=== PATIENT | female | born 1935 | race Caucasian/White ===

== ENCOUNTER → 2022-06-24 | Outpatient (CLI) | payer MEDICARE | END | disposition home or self-care (01) | LOC: RAH 07:49 | PROVIDERS: ATTEND Nurse Practitioner | DX: M25.411 Effusion, right shoulder (principal); M85.611 Other cyst of bone, right shoulder; M75.41 Impingement syndrome of right shoulder; M19.011 Primary osteoarthritis, right shoulder | CPT/HCPCS: 73221 ==

== ENCOUNTER 2022-07-16 08:00 | Observation (INO) | payer MEDICARE ==
[~2022-07-16] VITALS: Ht 160 cm; Wt 72.2 kg
[2022-07-16 10:35] VITALS: BP 176/68
[2022-07-16 10:49] LABS: BASOPHILS % (AUTO) 0.9 % (0.0-5.0); EOSINOPHILS % (AUTO) 1.2 % (0.0-8.0); MEAN CORPUSCULAR HEMOGLOBIN 27.2 pg (27.0-33.0); MEAN CORPUSCULAR HGB CONC 31.2 g/dL (32.0-36.0); MEAN CORPUSCULAR VOLUME 87.3 fL (79-99); MONOCYTES % (AUTO) 7.2 % (3.0-13.0); NEUTROPHILS % (AUTO) 75.4 % (40.0-77.0); PLATELET COUNT (AUTO) 266 K/uL (130-400); RED BLOOD CELL COUNT(AUTO) 4.81 MIL/uL (4.00-5.50); RED CELL DISTRIBUTION WIDTH 14.4 % (11.0-15.5); WHITE BLOOD COUNT (AUTO) 11.1 K/uL (4.8-10.8)
[2022-07-16 11:00] LABS: ALBUMIN 3.4 g/dL (3.5-5.0); CARBON DIOXIDE 29 mmol/L (21-32); CHLORIDE 103 mmol/L (101-111); CREATININE 0.9 mg/dL (0.5-1.5); GLOMERULAR FILTR. RATE CALC 63 mL/min (>60); GLUCOSE,RANDOM 86 mg/dL (70-105); POTASSIUM 3.3 mmol/L (3.5-5.1); SODIUM SERUM 139 mmol/L (136-145); UREA NITROGEN, BLOOD 17 mg/dL (7-18)
[2022-07-16 11:03] LABS: INR 0.93 (0.85-1.15); PROTHROMBIN TIME 10.1 SEC (9.6-11.6)
[2022-07-16 11:04] LABS: PARTIAL THROMBOPLASTIN TIME 28.5 SEC (26.3-35.5)
[2022-07-16 11:08] LABS: CRP QUANTITATIVE < 2.00 mg/L (0.00-9.0)
[2022-07-16 11:13] LABS: APPEARANCE,URINE CLEAR (CLEAR); BILIRUBIN,URINE NEGATIVE (NEGATIVE); COLOR,URINE LIGHT-YELLOW (YELLOW); GLUCOSE, URINE (UA) NEGATIVE (NEGATIVE); KETONES,URINE NEGATIVE (NEGATIVE); LEUKOCYTE ESTERASE ,URINE 250 Leu/uL (NEGATIVE); NITRATE,URINE NEGATIVE (NEGATIVE); OCCULT BLOOD,URINE NEGATIVE (NEGATIVE); PH,URINE 5.5 (5.0-8.0); PROTEIN,URINE NEGATIVE (NEGATIVE); UROBILINOGEN,URINE 0.2 mg/dL (0.2-1.0)
[2022-07-16 11:34] LABS: MUCUS,URINE RARE LPF (None Seen); SQUAMOUS EPITHELIAL CELL,UR MOD /HPF (0-2); TRANSITIONAL EPI CELLS,URINE RARE /HPF (None Seen)
[2022-07-16] MEDS ORDERED: TRAZ150T79 PO (11:44)
[2022-07-16] MEDS ORDERED: BUDE3CAP10 PO (11:44)
[2022-07-16] MEDS ORDERED: AMLO-258 PO (11:44)
[2022-07-16] MEDS ORDERED: RIVA3CAP17 PO (11:44)
[2022-07-16] MEDS ORDERED: DENO60DI SQ (11:44)
[2022-07-16] MEDS ORDERED: LEVO100C4 PO (11:44)
[2022-07-16] MEDS ORDERED: IRON18TA PO (11:44)
[2022-07-16] MEDS ORDERED: CA/D1TAB3 PO (11:44)
[2022-07-16] MEDS ORDERED: ASCO500C18 PO (11:44)
[2022-07-16] MEDS ORDERED: PRAV20TA4 PO (11:44)
[2022-07-16] MEDS ORDERED: UBID100C10 PO (11:44)
[2022-07-16] MEDS ORDERED: CHOL200074 PO (11:44)
[2022-07-16] MEDS ORDERED: CETI10CA5 PO (11:44)
[2022-07-16] MEDS ORDERED: BETA1TAB18 PO (11:44)
[2022-07-16] MEDS ORDERED: TYLENOL ARTHRITIS PO (11:44)
[2022-07-16] MEDS ORDERED: [UNRECOGNIZED DRUG - OTHER] PO (11:44)
[2022-07-16] MEDS ORDERED: MELA5CAP PO (11:44)
[2022-07-16] MEDS ORDERED: MONT-39 PO (11:44)
[2022-07-19] VITALS (30 sets, daily range): BP systolic 81–139; BP diastolic 32–90
[2022-07-19] MEDS ORDERED: ROPIVACAINE 0.5% 5MG/ML 30ML IJ ONE (04:28)
[2022-07-19] MEDS ORDERED: ALBUMIN (HUMAN) 5% 250 ML IV ONE ×2 (04:56→11:19)
[2022-07-19] MEDS ORDERED: PROPOFOL 10 MG/ML 20ML VIAL IV ONE (06:25)
[2022-07-19] MEDS ORDERED: DEXAMETHASONE SOD PHOSPHATE 10MG/ML 1ML VIAL ONE (06:25)
[2022-07-19] MEDS ORDERED: GLYCOPYRROLATE 1 MG/5 ML SYRINGE ONE (06:25)
[2022-07-19] MEDS ORDERED: LIDOCAINE PF 100MG/5ML (2%) SYRINGE 5ML ONE (06:25)
[2022-07-19] MEDS ORDERED: SUCCINYLCHOLINE CHLORIDE 20 MG/ML 10 ML VIAL ONE (06:25)
[2022-07-19] MEDS ORDERED: ROCURONIUM 10MG/1ML SYR 10 MG/ML ML ONE ×2 (06:26→08:52)
[2022-07-19] MEDS ORDERED: FENTANYL CITRATE PF 50 MCG/1 ML 2ML VIAL ONE (06:26)
[2022-07-19] MEDS ORDERED: ONDANSETRON 4MG INJ ONE (06:26)
[2022-07-19] MEDS ORDERED: MIDAZOLAM HCL 1 MG/ML 2ML VIAL ONE (06:26)
[2022-07-19] MEDS ORDERED: NEOSTIGMINE 5MG/5ML SYR IV ONE (06:26)
[2022-07-19] MEDS ORDERED: PHENYLEPHRINE HCL 10 MG/ML 1ML VIAL IV ONE ×2 (06:32→09:10)
[2022-07-19] MEDS ORDERED: EPHEDRINE SULFATE 50 MG/ML AMPULE ONE ×2 (06:36→11:49)
[2022-07-19] MEDS ORDERED: CEFAZOLIN SODIUM 1 GM VIAL ONE (06:41)
[2022-07-19] MEDS ORDERED: LACTATED RINGERS 1000ML 1,000 ML IV ONE (06:41)
[2022-07-19] MEDS ORDERED: ALBUTEROL INHALER 90MCG/INH IH ONE (07:18)
[2022-07-19] MEDS ORDERED: NOREPINEPHRINE BITARTRATE 1 MG/1 ML ML IV ONE (09:39)
[2022-07-19] MEDS ORDERED: POTASSIUM CHLORIDE 10% ELIXIR 20 MEQ/15 ML UDCUP PO PRN (10:00)
[2022-07-19] MEDS ORDERED: POTASSIUM CHLORIDE 20MEQ/100ML 100 ML IV PRN (10:00)
[2022-07-19] MEDS ORDERED: ONDANSETRON 4MG INJ IVP PRN (10:00)
[2022-07-19] MEDS ORDERED: KETOROLAC 15MG/ML VIAL (15MG/ML) IV PRN (10:00)
[2022-07-19] MEDS ORDERED: KCL 20 MEQ ERTAB PO PRN (10:00)
[2022-07-19] MEDS ORDERED: DiphenhydrAMINE HCL 50 MG/ML VIAL IVP PRN (10:00)
[2022-07-19] MEDS ORDERED: HYDROCODONE/ACETAMINOPHEN 5/325 MG TAB PO PRN (10:00)
[2022-07-19] MEDS ORDERED: LIDOCAINE HCL-MPF 1% 2ML VIAL IV PRN (10:00)
[2022-07-19] MEDS ORDERED: CALCIUM CARB 500MG PO PRN (10:00)
[2022-07-19] MEDS: 0.9%NACL 1000ML 1,000 ML IV SCH ×2 (10:00→20:00)
[2022-07-19] MEDS ORDERED: FE FUMARATE/FA/MV, MIN COMB#15 1 TAB PO PRN (10:00)
[2022-07-19] MEDS: KETOROLAC 15MG/ML VIAL (15MG/ML) IV SCH ×2 (11:03→19:11)
[2022-07-19] MEDS ORDERED: LACTATED RINGERS 1000ML 1,000 ML IV SCH ×2 (13:30)
[2022-07-19] MEDS ORDERED: IRON 18 MG PO SCH (13:30)
[2022-07-19 14:31] LABS: BASOPHILS % (AUTO) 0.2 % (0.0-5.0); LYMPHOCYTES % (AUTO) 3.1 % (21.0-51.0); MEAN CORPUSCULAR HEMOGLOBIN 27.5 pg (27.0-33.0); MEAN CORPUSCULAR HGB CONC 31.6 g/dL (32.0-36.0); MEAN CORPUSCULAR VOLUME 87.2 fL (79-99); MONOCYTES % (AUTO) 1.7 % (3.0-13.0); NEUTROPHILS % (AUTO) 94.6 % (40.0-77.0); PLATELET COUNT (AUTO) 187 K/uL (130-400); RED BLOOD CELL COUNT(AUTO) 3.67 MIL/uL (4.00-5.50); RED CELL DISTRIBUTION WIDTH 14.4 % (11.0-15.5); WHITE BLOOD COUNT (AUTO) 13.8 K/uL (4.8-10.8)
[2022-07-19 14:51] LABS: CREATININE 0.7 mg/dL (0.5-1.5); POTASSIUM 3.2 mmol/L (3.5-5.1)
[2022-07-19 14:57] LABS: ALBUMIN 3.2 g/dL (3.5-5.0); MAGNESIUM 1.7 mg/dL (1.80-2.40); TOTAL PROTEIN, SERUM 5.8 g/dL (6.0-8.3)
[2022-07-19] MEDS: CEFAZOLIN SODIUM 2 GM VIAL IVPB SCH ×2 (17:36→22:46)
[2022-07-19] MEDS: DOCUSATE SODIUM 100 MG CAP PO SCH (20:42)
[2022-07-19] MEDS: FAMOTIDINE 20MG TAB PO SCH (20:42)
[2022-07-19] MEDS: RIVASTIGMINE TARTRATE 3 MG PO SCH (20:48)
[2022-07-19] MEDS ORDERED: MONTELUKAST SODIUM 10 MG TAB PO SCH (21:00)
[2022-07-19] MEDS ORDERED: TRAZODONE HCL 50 MG TAB PO SCH (21:00)
[2022-07-19] MEDS ORDERED: CETIRIZINE HCL 5 MG TABLET PO SCH (21:00)
[2022-07-19] MEDS ORDERED: ATORVASTATIN 10 MG TABLET PO SCH (21:00)
[2022-07-19] MEDS ORDERED: **HM**(Melatonin 5 MG PO SCH (21:00)
[2022-07-20] VITALS: BP 118/63
[2022-07-20] MEDS: KETOROLAC 15MG/ML VIAL (15MG/ML) IV SCH (03:04)
[2022-07-20 04:00] VITALS: BP 121/55
[2022-07-20 05:35] LABS: HEMATOCRIT 30.3 % (36-48); MEAN CORPUSCULAR HEMOGLOBIN 27.5 pg (27.0-33.0); MEAN CORPUSCULAR VOLUME 85.8 fL (79-99); RED BLOOD CELL COUNT(AUTO) 3.53 MIL/uL (4.00-5.50); RED CELL DISTRIBUTION WIDTH 14.4 % (11.0-15.5); WHITE BLOOD COUNT (AUTO) 13.1 K/uL (4.8-10.8)
[2022-07-20] MEDS: 0.9%NACL 1000ML 1,000 ML IV SCH (06:00)
[2022-07-20 06:03] LABS: CREATININE 0.7 mg/dL (0.5-1.5); POTASSIUM 3.6 mmol/L (3.5-5.1)
[2022-07-20] MEDS ORDERED: LEVOTHYROXINE 100 MCG TABLET PO SCH (06:30)
[2022-07-20 08:00] VITALS: BP 143/77
[2022-07-20] MEDS: DOCUSATE SODIUM 100 MG CAP PO SCH (08:32)
[2022-07-20] MEDS: FAMOTIDINE 20MG TAB PO SCH (08:33)
[2022-07-20] MEDS: RIVASTIGMINE TARTRATE 3 MG PO SCH (08:35)
[2022-07-20] MEDS ORDERED: AMLODIPINE 5 MG TAB PO SCH (09:00)
[2022-07-20] MEDS ORDERED: POLYETHYLENE GLYCOL 3350 17 GM POWD.PACK PO SCH (09:00)
[2022-07-20] MEDS ORDERED: BUDESONIDE 3 MG CAP.ER.24H PO SCH (09:00)
[2022-07-20 12:27] VITALS: BP 137/71
[2022-07-20] MEDS ORDERED: TRAMADOL HCL 50 MG TABLET PO PRN (12:30)
[2022-07-20] MEDS ORDERED: HYDROCODONE/ACETAMINOPHEN 5/325 MG TAB PO PRN ×2 (12:30)
[2022-07-20] MEDS ORDERED: TRAM50TA4 PO (17:45)
[2022-07-22] MEDS ORDERED: BISACODYL 10 MG SUPP.RECT RC PRN (10:00)
== END 2022-07-20 18:30 | disposition home or self-care (01) ==
LOC: EDSTATUS 08:00 → DAHIP 07-19 05:52 → 3AH 07-19 15:33
PROVIDERS: ADMIT Student in an Organized Health Care Education/Training Program; ATTEND Student in an Organized Health Care Education/Training Program
DX: M19.012 Primary osteoarthritis, left shoulder (principal); Z20.822 Contact with and (suspected) exposure to COVID-19; D62 Acute posthemorrhagic anemia; I10 Essential (primary) hypertension; E78.5 Hyperlipidemia, unspecified; E03.9 Hypothyroidism, unspecified; E83.51 Hypocalcemia; M75.102 Unspecified rotator cuff tear or rupture of left shoulder, not specified as traumatic; I95.9 Hypotension, unspecified; I49.3 Ventricular premature depolarization; Z90.710 Acquired absence of both cervix and uterus; Z79.899 Other long term (current) drug therapy; Z98.890 Other specified postprocedural states
CPT/HCPCS: 23472; 96365; 96366; 96375; 96376; G0378 ×27; G0379; C1776; 36415; 73030; 80048; 80053; 81001; 82040; 82948; 83735; 84134; 85025; 85027; 85610; 85730; 86140; 87088; 87426; 87641; 93005; 97039; A4565; J0330; J0690; J1100; J1885; J2001; J2250; J2370; J2405; J2704; J2710; J2795; J3010; J3490; J7120; P9045

== ENCOUNTER 2022-07-22 14:50 | Inpatient (IN) | payer MEDICARE ==
[~2022-07-22] VITALS: Ht 154.9 cm; Wt 83.0 kg
[~2022-07-22 14:50] MED LIST: AMLO-258 PO; ASCO500C18 PO; BETA1TAB18 PO; BUDE3CAP10 PO; CA/D1TAB3 PO; CETI10CA5 PO; CHOL200074 PO; DENO60DI SQ; IRON18TA PO; LEVO100C4 PO; MELA5CAP PO; MONT-39 PO; PRAV20TA4 PO; RIVA3CAP17 PO; TRAM50TA4 PO; TRAZ150T79 PO; TYLENOL ARTHRITIS PO; UBID100C10 PO; [UNRECOGNIZED DRUG - OTHER] PO
[2022-07-22 17:27] LABS: BASOPHILS % (AUTO) 0.4 % (0.0-5.0); EOSINOPHILS % (AUTO) 0.5 % (0.0-8.0); HEMATOCRIT 34.1 % (36-48); LYMPHOCYTES % (AUTO) 6.9 % (21.0-51.0); MEAN CORPUSCULAR HGB CONC 31.7 g/dL (32.0-36.0); MEAN CORPUSCULAR VOLUME 85.3 fL (79-99); MONOCYTES % (AUTO) 9.2 % (3.0-13.0); NEUTROPHILS % (AUTO) 82.5 % (40.0-77.0); PLATELET COUNT (AUTO) 187 K/uL (130-400); RED CELL DISTRIBUTION WIDTH 14.2 % (11.0-15.5); WHITE BLOOD COUNT (AUTO) 13.8 K/uL (4.8-10.8)
[2022-07-22 17:41] LABS: CREATININE 0.7 mg/dL (0.5-1.5); TOTAL PROTEIN, SERUM 6.7 g/dL (6.0-8.3)
[2022-07-22 17:56] LABS: POTASSIUM 2.8 mmol/L (3.5-5.1)
[2022-07-22 18:00] LABS: APPEARANCE,URINE CLEAR (CLEAR); BILIRUBIN,URINE NEGATIVE (NEGATIVE); COLOR,URINE LIGHT-YELLOW (YELLOW); GLUCOSE, URINE (UA) NEGATIVE (NEGATIVE); KETONES,URINE 40 mg/dL (NEGATIVE); LEUKOCYTE ESTERASE ,URINE 500 Leu/uL (NEGATIVE); NITRATE,URINE NEGATIVE (NEGATIVE); OCCULT BLOOD,URINE NEGATIVE (NEGATIVE); PH,URINE 6.5 (5.0-8.0); PROTEIN,URINE 20 mg/dL (NEGATIVE); UROBILINOGEN,URINE 0.2 mg/dL (0.2-1.0)
[2022-07-22 18:09] LABS: BACTERIA,URINE MOD /HPF (None Seen); MUCUS,URINE RARE LPF (None Seen); SQUAMOUS EPITHELIAL CELL,UR FEW /HPF (0-2); WBC,URINE 26-50 /HPF (0-1)
[2022-07-22] MEDS ORDERED: POTASSIUM BICARB/CIT AC 25 MEQ TABLET.EFF PO STA (18:39)
[2022-07-22] MEDS ORDERED: HEPARIN 5,000 UNIT VIAL ONE (18:41)
[2022-07-22] MEDS ORDERED: HEPARIN 25,000 UNITS/250ML D5W 250 ML IV ONE (18:41)
[2022-07-22] MEDS ORDERED: ACETAMINOPHEN 325 MG TAB PO PRN ×2 (19:00)
[2022-07-22] MEDS ORDERED: MORPHINE 4 MG SYG IV PRN (19:00)
[2022-07-22] MEDS ORDERED: POTASSIUM CHLORIDE 20MEQ/100ML 100 ML IV PRN (19:00)
[2022-07-22] MEDS ORDERED: LEVOFLOXACIN 500 MG/D5W 100 ML 100 ML IV ONE (19:00)
[2022-07-22] MEDS ORDERED: MORPHINE 2 MG SYG IV PRN (19:00)
[2022-07-22] MEDS ORDERED: POTASSIUM BICARB/CIT AC 25 MEQ TABLET.EFF PO ONE (19:00)
[2022-07-22] MEDS ORDERED: MAGNESIUM 2GM PREMIX 50ML 50 ML IV PRN (19:00)
[2022-07-22] MEDS ORDERED: ONDANSETRON 4MG INJ IV PRN (19:00)
[2022-07-22] MEDS ORDERED: LIDOCAINE HCL-MPF 1% 2ML VIAL IV PRN (19:00)
[2022-07-22] MEDS ORDERED: HEPARIN 25,000 UNITS/250ML D5W 250 ML IV SCH (21:30)
[2022-07-22 21:59] VITALS: BP 167/97
[2022-07-22 23:29] VITALS: BP 169/64
[2022-07-23] MEDS ORDERED: TRAMADOL HCL 50 MG TABLET PO PRN
[2022-07-23 04:00] VITALS: BP 146/71
[2022-07-23] MEDS: LEVOTHYROXINE 100 MCG TABLET PO SCH (05:46)
[2022-07-23 07:12] VITALS: BP 157/70
[2022-07-23 07:26] LABS: BASOPHILS % (AUTO) 0.6 % (0.0-5.0); EOSINOPHILS % (AUTO) 1.9 % (0.0-8.0); HEMATOCRIT 30.7 % (36-48); LYMPHOCYTES % (AUTO) 15.9 % (21.0-51.0); MEAN CORPUSCULAR HEMOGLOBIN 27.2 pg (27.0-33.0); MEAN CORPUSCULAR HGB CONC 32.2 g/dL (32.0-36.0); MEAN CORPUSCULAR VOLUME 84.3 fL (79-99); MONOCYTES % (AUTO) 10.6 % (3.0-13.0); NEUTROPHILS % (AUTO) 70.6 % (40.0-77.0); PLATELET COUNT (AUTO) 200 K/uL (130-400); RED BLOOD CELL COUNT(AUTO) 3.64 MIL/uL (4.00-5.50); RED CELL DISTRIBUTION WIDTH 14.3 % (11.0-15.5); WHITE BLOOD COUNT (AUTO) 11.8 K/uL (4.8-10.8)
[2022-07-23 07:56] LABS: CREATININE 0.6 mg/dL (0.5-1.5); MAGNESIUM 1.7 mg/dL (1.80-2.40); PHOSPHORUS 3.5 mg/dL (2.5-4.9); POTASSIUM 3.1 mmol/L (3.5-5.1); THYROID STIMULATING HORMONE 1.03 uIU/mL (0.36-3.74)
[2022-07-23] MEDS ORDERED: MAGNESIUM OXIDE 400 MG TABLET PO ONE (08:52)
[2022-07-23] MEDS: AMLODIPINE 5 MG TAB PO SCH (08:58)
[2022-07-23] MEDS: FAMOTIDINE 20MG VIAL IV SCH (08:58)
[2022-07-23] MEDS: BUDESONIDE 3 MG CAP.ER.24H PO SCH (08:58)
[2022-07-23] MEDS: KCL 20 MEQ ERTAB PO PRN ×3 (08:58→13:51)
[2022-07-23] MEDS: ASCORBIC ACID 500 MG TAB PO SCH (08:58)
[2022-07-23] MEDS: RIVASTIGMINE TARTRATE 3 MG PO SCH ×2 (09:00→21:00)
[2022-07-23] MEDS ORDERED: MAGNESIUM OXIDE 400 MG TABLET PO SCH (09:00)
[2022-07-23 11:40] VITALS: BP 143/73
[2022-07-23 16:00] VITALS: BP 136/84
[2022-07-23 17:49] LABS: % IRON SATURATION 8.7 % (22-44)
[2022-07-23 18:57] VITALS: BP 151/77
[2022-07-23] MEDS ORDERED: LEVOFLOXACIN 250 MG/D5W 50ML 50 ML IVPB SCH (19:30)
[2022-07-23] MEDS ORDERED: TRAZODONE HCL 100 MG TABLET PO SCH (21:00)
[2022-07-23] MEDS ORDERED: SIMVASTATIN 20 MG TABLET PO SCH (21:00)
[2022-07-23] MEDS ORDERED: MONTELUKAST SODIUM 10 MG TAB PO SCH (21:00)
[2022-07-23 23:21] VITALS: BP 137/73
[2022-07-24 03:23] VITALS: BP 100/53
[2022-07-24 04:33] LABS: BASOPHILS % (AUTO) 0.8 % (0.0-5.0); EOSINOPHILS % (AUTO) 2.3 % (0.0-8.0); HEMATOCRIT 31.9 % (36-48); LYMPHOCYTES % (AUTO) 18.5 % (21.0-51.0); MEAN CORPUSCULAR HEMOGLOBIN 27.3 pg (27.0-33.0); MEAN CORPUSCULAR HGB CONC 31.3 g/dL (32.0-36.0); MEAN CORPUSCULAR VOLUME 87.2 fL (79-99); NEUTROPHILS % (AUTO) 65.8 % (40.0-77.0); PLATELET COUNT (AUTO) 222 K/uL (130-400); RED BLOOD CELL COUNT(AUTO) 3.66 MIL/uL (4.00-5.50); RED CELL DISTRIBUTION WIDTH 14.3 % (11.0-15.5); WHITE BLOOD COUNT (AUTO) 9.6 K/uL (4.8-10.8)
[2022-07-24 05:05] LABS: ALBUMIN 2.4 g/dL (3.5-5.0); CREATININE 0.7 mg/dL (0.5-1.5); POTASSIUM 3.6 mmol/L (3.5-5.1); TOTAL PROTEIN, SERUM 6.1 g/dL (6.0-8.3)
[2022-07-24] MEDS: LEVOTHYROXINE 100 MCG TABLET PO SCH (06:23)
[2022-07-24] MEDS: POTASSIUM CHLORIDE 10% ELIXIR 20 MEQ/15 ML UDCUP PO PRN ×2 (06:31→08:39)
[2022-07-24] MEDS ORDERED: FERROUS SULFATE 325 MG TABLET.DR PO SCH (07:10)
[2022-07-24 08:35] VITALS: BP 150/59
[2022-07-24] MEDS: ASCORBIC ACID 500 MG TAB PO SCH (08:39)
[2022-07-24] MEDS: FAMOTIDINE 20MG VIAL IV SCH (08:42)
[2022-07-24] MEDS: RIVASTIGMINE TARTRATE 3 MG PO SCH (08:46)
[2022-07-24] MEDS ORDERED: CALC-131 PO (08:53)
[2022-07-24] MEDS ORDERED: APIXABAN 5 MG TABLET PO SCH (09:00)
[2022-07-24] MEDS: AMLODIPINE 5 MG TAB PO SCH (09:22)
[2022-07-24] MEDS: BUDESONIDE 3 MG CAP.ER.24H PO SCH (10:03)
[2022-07-24] MEDS ORDERED: PANT40TA55 PO (10:23)
[2022-07-24 12:35] VITALS: BP 141/65
[2022-07-24] MEDS ORDERED: APIX5TAB PO (14:21)
[2022-07-24 16:16] VITALS: BP 137/57
== END 2022-07-24 17:14 | disposition home or self-care (01) | DRG 300 ==
LOC: EDH 14:50 → EDHIP 18:14 → 2DH 21:24
PROVIDERS: ADMIT Internal Medicine; ATTEND Internal Medicine
DX: I82.B12 Acute embolism and thrombosis of left subclavian vein (principal); E44.0 Moderate protein-calorie malnutrition; N39.0 Urinary tract infection, site not specified; I82.612 Acute embolism and thrombosis of superficial veins of left upper extremity; E87.6 Hypokalemia; D64.9 Anemia, unspecified; E03.9 Hypothyroidism, unspecified; E78.00 Pure hypercholesterolemia, unspecified; F17.210 Nicotine dependence, cigarettes, uncomplicated; I10 Essential (primary) hypertension; I80.8 Phlebitis and thrombophlebitis of other sites; M19.90 Unspecified osteoarthritis, unspecified site; Z96.612 Presence of left artificial shoulder joint; Z88.0 Allergy status to penicillin; Z90.710 Acquired absence of both cervix and uterus; Z68.34 Body mass index [BMI] 34.0-34.9, adult
CPT/HCPCS: 36415; 71045; 80048; 80053; 81001; 83540; 83550; 83605; 83735; 84100; 84132; 84145; 84443; 85025; 85730; 87040; 87088; 93971; 97039; 99291; G0378; J1644; J1956; J3490